=== PATIENT | female | born 1995 | race Caucasian/White ===

== ENCOUNTER 2019-05-09 22:46 | Emergency (ER) | payer OTHER, MEDICAID, SELFPAY ==
[2019-05-09 22:58] VITALS: BP 150/90; PULSE 79; RESP 14; TEMP 36.9; O2SAT 100
--- NOTE | 2019-05-09 23:13 | DI.US.S_ITS ---
PROCEDURE: US PELVIC COMPLETE INDICATIONS: DX OF PID ON ABX WITH L>R ADNEXA PAIN TECHNIQUE: Real-time scanning was performed of the pelvic organs, with image documentation. Additional endovaginal scanning was necessary due to incomplete visualization of the adnexal and endometrial structures by transabdominal scanning. COMPARISON: None. FINDINGS: Transabdominal scanning: Limited scanning through the kidneys shows no hydronephrosis. No pathologic free abdominal or pelvic fluid. Endovaginal scanning: Uterus: The uterus is normal in size and measures 6.6 x 2.4 x 4.0 cm. Separation of the uterine horns is present, suggesting aseptic uterus or potentially a bicornuate uterus. No focal myometrial lesions are identified. The endometrium measures up to 2 mm in maximal combined thickness. No significant fluid is seen within the endometrium. The cervix is within normal limits. Ovaries: The right ovary measures 2.5 x 2.2 x 2.6 cm. The left ovary measures 4.1 x 1.9 x 2.0 cm. Both ovaries are normal in size and contains small follicles. No ovarian cysts or solid lesions are evident. IMPRESSION: 1. No loculated fluid collections within the pelvis are evident. 2. No ovarian cysts. 3. 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 Dictated by: Danial Angel M.D. on 05/10/2019 at 7:12 Approved by: Danial Angel M.D. on 05/10/2019 at 7:16
--- NOTE | 2019-05-09 23:13 | ED.GENADULT ---
HPI - General Adult General Chief complaint: Urogenital-Female Stated complaint: pelvic infection not getting better with antibioti Time Seen by Provider: 05/09/19 22:50 Source: patient Mode of arrival: Ambulatory Limitations: no limitations History of Present Illness HPI narrative: Patient is a 24-year-old female. She states that at the beginning of 2017 she had an IUD placed. In August 12, 2018 she started to have lower abdominal pain. [facility] Patient stated that she had testing for multiple infections to include sexually transmitted diseases. She was informed that all of this testing was negative for any specific infection however she was treated with multiple different antibiotics. She reported that all the symptoms resolved. In November of this year she had the same abdominal pain. Patient stated that she again underwent multiple testing for pelvic infections. She stated that at all of this testing returned negative however she again was treated with multiple different antibiotics and at this time had the IUD removed. She reported that all of the symptoms resolved. Within the past month patient again had return of the pelvic pain. She again stated that she underwent testing for multiple infections. Stated that she just finished a dose of metronidazole today and she is currently on day 3 of doxycycline for presumed pelvic infections although again she states that all of the testing was negative. she reports that she is scheduled for a pelvic ultrasound on Saturday of next week for further evaluation. Patient states that she was told that there was a concern for pelvic inflammatory disease. She comes to the emergency department this evening for increasing lower abdominal pain. none of the testing results described above are available for my review. Related Data Home Medications Medication Instructions Recorded Confirmed levonorgestrel [Mirena] 52 mg INTRAU #0 08/15/17 02/20/18 Previous Rx's Medication Instructions Recorded citalopram 40 mg PO QDAY #90 tab 06/25/17 albuterol sulfate 90 mcg/actuation 2 puff INHALATION Q4-6H PRN #18 03/26/18 aerosol inhaler gram Allergies Allergy/AdvReac Type Severity Reaction Status Date / Time lidocaine [From LIDODERM] Allergy Unknown Verified 02/20/18 19:48 Review of Systems Constitutional Constitutional: Denies headache(s) ENT Ears, Nose, Mouth, and Throat: Denies headache(s) Cardiovascular Cardiovascular: Denies chest pain and Denies dyspnea Respiratory Respiratory: Denies dyspnea Gastrointestinal Gastrointestinal: Reports abdominal pain, Denies change in stool character, Denies diarrhea, Denies nausea and Denies vomiting Genitourinary Genitourinary: Denies urinary frequency, Denies difficulty voiding, Denies dysuria, Reports pelvic pain, Denies flank pain, Denies urinary incontinence, Denies urinary hesitancy, Denies urinary urgency and Denies vaginal discharge Musculoskeletal Musculoskeletal: Denies myalgias and Denies arthralgias Integumentary/Breasts Skin/Breast: Denies lesions and Denies rash Neurologic Neurologic: Denies behavioral changes and Denies headache(s) Psychiatric Psychiatric: Denies behavioral changes Hematologic/Lymphatic Hematologic/Lymphatic: Denies easy bleeding and Denies easy bruising FOR[facility]LY [facility], [facility] Medical History ADHD (attention deficit hyperactivity disorder) (Chronic 2009) Ankle pain (Resolved 2010) Anxiety (Chronic 2009) Asthma (Chronic 2012) Chronic back pain (Chronic 2015) Depression (Chronic 2009) Migraines (Chronic 2007) Surgical History (Updated 03/31/18 @ 11:09 by Carin Velasco LPN) History of ankle surgery (Resolved 2012) Hx of laminectomy (Resolved 09/2017) Hx of surgical procedure (Resolved 2010) Family History (Updated 02/14/17 @ 00:00 by Conversion Provider) Grandmother Cancer Stroke Social History Smoking Status: Never smoker Family History (Updated 02/14/17 @ 00:00 by Conversion Provider) Grandmother Cancer Stroke Social History Smoking Status: Never smoker Exam Initial Vital Signs Initial Vital Signs: Vital Signs Temperature 98.5 F 05/09/19 22:58 Pulse Rate 79 05/09/19 22:58 Respiratory Rate 14 05/09/19 22:58 Blood Pressure 150/90 H 05/09/19 22:58 Pulse Oximetry 100 05/09/19 22:58 HENMT Head: normal to inspection and normocephalic Resp Effort & Inspection: normal respiratory effort Auscultation: clear to auscultation bilaterally Cardio Rate: regular rate Rhythm: regular rhythm GI Inspection: non-distended Palpation: soft, No firm and tender (Bilateral adnexa) Back/Spine/Pelvis Back: No CVA tenderness Skin Lesions: no lesions Rashes: no rashes Neuro General: alert, awake and oriented x3 Cognition: normal cognition Speech: speech normal Gait: normal gait Extrem General: normal to inspection and capillary refill normal Psych Appearance: grossly normal and well kempt Course Orders Ordered: ED Orders 05/09/19 23:13 US pelvic complete Stat Vital Signs Vital signs: Vital Signs - 8 hr 05/09/19 22:58 05/09/19 23:52 Temperature 98.5 F Pulse Rate 79 77 Respiratory Rate 14 Blood Pressure 150/90 H Blood Pressure [Left Arm] 144/91 H Pulse Oximetry 100 100 Medical Decision Making Imaging Data Pelvic ultrasound: Radiologist's impression: Preliminary review Uterine duplication anomaly, 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 She is currently being treated with doxycycline and just finished a course of metronidazole. Also appears that she has been on Rocephin and amoxicillin recently as well. I did not feel that testing today would be warranted. The ultrasound did not show any tubo-ovarian abscess or other surgical/infectious etiology. I informed the patient that she needed to go back to her irrigation teacher provider to discuss further workup especially in the setting of 3 different pelvic pain episodes in being treated for infections without any definitive positive testing for infections. she was given a copy of the ultrasound on a CD to take to her irrigation teacher provider. She was given return precautions. She expressed understanding and agreement with plan. Discharge Plan Departure Patient Disposition: Home Clinical Impression: Pelvic pain Discharge Date/Time: 05/10/19 02:00 Instructions: DI for Pelvic Pain Activity Restrictions/Additional Instructions: Recommend that you contact your irrigation teacher provider to discuss further workup. Continue all of your medications as directed. Return to the emergency department for any new or worsening symptoms Prescriptions: No Action citalopram 40 MG tablet 40 mg PO QDAY Qty: 90 RF: 3 levonorgestrel [Mirena] 1 EACH intrauterine device 52 mg INTRAU Qty: 0 RF: 0 albuterol sulfate 90 mcg/actuation HFA aerosol inhaler 2 puff INHALATION Q4-6H PRN (Reason: shortness of breath or wheezing) Qty: 18 RF: 2
--- NOTE | 2019-05-09 23:51 | PC.NURSE ---
Pt transported to and from ultrasound room in a wheelchair by tech
[2019-05-09 23:52] VITALS: BP 144/91; PULSE 77; O2SAT 100
== END 2019-05-10 02:00 | disposition home or self-care (01) ==
PROVIDERS: Emergency Provider Emergency Medicine
DX: R10.2 Pelvic and perineal pain (principal)
CPT/HCPCS: 76830; 76856; 99282; 99283